=== PATIENT | female | born 1975 | race Caucasian/White ===

== ENCOUNTER 2016-10-31 20:55 | Emergency (ER) | payer MEDICAID ==
[~2016-10-31] VITALS: Ht 154.9 cm; Wt 82.5 kg
[2016-10-31 20:57] VITALS: Ht 154.9 cm; Wt 82.5 kg
[2016-10-31] MEDS ORDERED: KETOROLAC 60 MG INJ IM STA (21:18)
[2016-10-31] MEDS ORDERED: PROCHLORPERAZINE 10 MG INJ IM ONE (21:30)
[2016-10-31] MEDS ORDERED: IBUP-1542 PO (22:18)
[2016-10-31] MEDS ORDERED: PROC10TA10 PO (22:18)
[2016-10-31] MEDS ORDERED: ACET500C5 PO (22:18)
--- NOTE | 2016-10-31 22:36 | ERD ---
ER Documentation Chief Complaint Date/Time DATE: 10/31/16 TIME: 22:30 Chief Complaint 9/10 headache since this am with n/v no neuro deficits HPI 40-year-old female complaining of a headache since this morning. Patient stated the headache had a gradual onset. She has pain all over her head. She described it feels as if her head is "coming open". She has photophobia and phonophobia. She vomited 3 times today. Patient stated that she has frequent headaches, and this feels similar to her previous headaches but worse. She usually drinks 6-7 cups of water a day. Her LMP was 10/21/2016. Denies fever or chills. Denies blurry vision. Denies neck pain. ROS All systems reviewed and are negative except as per history of present illness. Medications Home Meds Active Scripts Prochlorperazine* (Prochlorperazine*) 10 Mg Tablet, 10 MG PO Q6H Y for NAUSEA, # 10 TAB Prov:OLGA LIDIA ISSA. 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 Allergies Allergies: Coded Allergies: No Known Allergy (Unverified , 10/31/16) PMhx/Soc Medical and Surgical Hx: pt denies Medical Hx History of Surgery: No Anesthesia Reaction: No Hx Neurological Disorder: No Hx Respiratory Disorders: No Hx Cardiac Disorders: No Hx Psychiatric Problems: No Hx Miscellaneous Medical Probl: No Hx Alcohol Use: No Hx Substance Use: No Hx Tobacco Use: No Smoking Status: Never smoker Physical Exam Vitals Vital Signs Date Time Temp Pulse Resp B/P Pulse Ox O2 Delivery O2 Flow Rate FiO2 10/31/16 20:57 98.8 80 20 130/68 100 Physical Exam General: Well-developed, well-nourished, conscious and coherent, in no distress Skin: Warm and dry without rash, good texture and turgor Head: Normocephalic without evidence of trauma Eyes: Sclera and conjunctivae normal; pupils equal, round, and reactive to light; extraocular movements are intact Neck: Supple without meningismus or adenopathy. Carotids are equal. Trachea midline. No bruits or JVD. Bilateral upper trapezius muscle tightness noted. Chest: Normal AP diameter. Good expansion without retractions. Nontender. Lungs are clear to auscultate bilaterally with good tidal volume Heart: Regular rate and rhythm. No murmur, rub, or gallops heard Extremities: Full range of motion. Good strength bilaterally. No clubbing, cyanosis, or edema. Peripheral pulses are intact. Sensation intact Neuro: Alert and oriented 4; GCS 15. Cranial nerves II - XII intact. Motor sensory exam nonfocal. Moves all extremities. Deep tendon reflexes 2+ in all extremities. Speech clear. No pronator drift. Gait steady. Results 24 hrs Current Medications Medications (Trade) Dose Ordered Sig/Derik Route PRN Reason Start Time Stop Time Status Last Admin Dose Admin Ketorolac Tromethamine (Toradol) 60 mg ONCE STAT IM 10/31/16 21:18 10/31/16 21:20 DC 10/31/16 21:37 Prochlorperazine (Compazine Inj) 10 mg ONCE ONCE IM 10/31/16 21:30 10/31/16 21:31 DC 10/31/16 21:37 Procedures/MDM Well-appearing 40-year-old female presented ED with headache 1 day. Differentials include but not limited to migraine, cluster headache, tension headache, sinus or dental infection, TMJ syndrome, pseudotumor cerebri, meningitis, encephalitis, giant cell arteritis, glaucoma, subarachnoid hemorrhage, subdural or epidural hematoma, intracranial bleeding or tumor. Likely her headache is either tension type, or migraine. Patient given Toradol and Compazine IM in the ED. Patient reports much improvement of headache after the medications. Patient appears well, stable for discharge and outpatient management. Medical decision making shared with patient and family. Education provided to patient and family. Patient and family expressed understanding of the plan. Medications on discharge: Ibuprofen, Compazine. Follow-up: Primary care provider in 2-3 days or return to ED if worse. Disclaimer: Inadvertent spelling and grammatical errors are likely due to EHR/ dictation software use and do not reflect on the overall quality of patient care. Also, please note that the electronic time recorded on this note does not necessarily reflect the actual time of the patient encounter. Departure Diagnosis: Primary Impression: Headache Headache type: unspecified Headache chronicity pattern: acute headache Intractability: not intractable Qualified Code: R51 - Acute nonintractable headache, unspecified headache type Condition: Stable Patient Instructions: Self-Care for Headaches Ref[facility] Usted se crisostomo hecho un examen mdico de control que le indica que no est en mamadou condicin que requiera tratamiento urgente en el Departamento de Emergencia. Un estudio ms profundo y el tratamiento de loja condicin pueden esperar sin ningn riesgo hasta que usted sea atendida/o en el consultorio de loja mdico o mamadou cl franko. Es responsabilidad suya arreglar mamadou rupali para el seguimiento del vitaly. MANEJO DE CONDICIONES NO URGENTES EN EL FUTURO 1) Si usted tiene un mdico de atencin primaria: Usted debera llamar a loja mdico de atencin primaria antes de venir al departamento de emergencia. Despus de las horas de consultorio, loja doctor o loja asociado/a est disponible por telfono. El mdico o enfermero de betsy en el servicio telefnico puede asesorarle por natasha medio para atender el problema, o vitaly contrario se puede programar mamadou rupali. 2) Si usted no tiene un mdico de atencin primaria: Llame al mdico o clnica de referencia que aparece abajo chasity las horas de consultorio para hacer mamadou rupali para que le vean. CLINICAS: [facility] [phone] [address] [facility] [phone] [address] [facility] [phone] [address] [facility] [phone] [facility] [phone] [address] [facility] [phone] [address] Additional Instructions: Llame al doctor MAANA y zaida mamadou RUPALI PARA DENTRO DE 2-3 JENKINS.Dgale a la secretaria que nosotros le instruimos hacer esta rupali.Avise o llame si loja condicin se empeora antes de la rupali. Regresa aqui si peor o no mejor. OLGA LIDIA ISSA. GLENNY Oct 31, 2016 22:36
== END 2016-10-31 22:36 | disposition home or self-care (01) ==
LOC: FTE 20:55
DX: R51 Headache (principal); R40.2412 Glasgow coma scale score 13-15, at arrival to emergency department
CPT/HCPCS: 96372; J1885; Z7502

== ENCOUNTER 2017-01-31 18:13 | Emergency (ER) | payer MEDICAID ==
[~2017-01-31] VITALS: Ht 162.6 cm; Wt 81.5 kg
[~2017-01-31 18:13] MED LIST: ACET500C5 PO; IBUP-1542 PO; PROC10TA10 PO
[2017-01-31 18:30] VITALS: Ht 162.6 cm; Wt 81.5 kg
--- NOTE | 2017-01-31 19:12 | ERD ---
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 Patient describes the pain as throbbing pain, 4/10 scale, as was upon touching the area, accompanied with swelling. Patient denies any deformity. Patient denies any numbness or tingling. ROS All systems reviewed and are negative except as per history of present illness. 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 Allergies Allergies: Coded Allergies: No Known Allergy (Unverified , 01/31/17) PMhx/Soc Medical and Surgical Hx: pt denies Medical Hx, pt denies Surgical Hx History of Surgery: No Anesthesia Reaction: No Hx Neurological Disorder: No Hx Respiratory Disorders: No Hx Cardiac Disorders: No Hx Psychiatric Problems: No Hx Miscellaneous Medical Probl: No Hx Alcohol Use: No Hx Substance Use: No Hx Tobacco Use: No Smoking Status: Never smoker FmHx Family History: No coronary disease, No diabetes, No other Physical Exam Vitals Vital Signs Date Time Temp Pulse Resp B/P Pulse Ox O2 Delivery O2 Flow Rate FiO2 01/31/17 18:30 99.0 73 18 141/65 100 Physical Exam GENERAL: The patient is well developed and appropriate for usual state of health, in no apparent distress. CHEST: Clear to auscultation bilaterally. There are no rales, wheezes or rhonchi. HEART: Regular rate and rhythm. No murmurs, clicks, rubs or gallops. No S3 or S4. ABDOMEN: Soft, nontender and nondistended. Good bowel sounds. No rebound or guarding. No gross peritonitis. No gross organomegaly or masses. No Shen sign or McBurney point tenderness. BACK: No midline or flank tenderness. EXTREMITIES: Tenderness on palpation on the patellar aspect of the left knee, no deformity noted, able to ambulate on it. Full range of motion without any restriction. Equal pulses bilaterally. Full range of motion of other joints of the body. Grossly neurovascularly intact. NEURO: Alert and oriented. Cranial nerves 2-12 intact. Motor strength in all 4 extremities with 5/5 strength. Sensation grossly intact. Normal speech and gait. SKIN: There is no apparent rash or petechia. The skin is warm and dry. HEMATOLOGIC AND LYMPHATIC: There is no evidence of excessive bruising or lymphedema. No gross cervical, axillary, or inguinal lymphadenopathy. Results 24 hrs Current Medications Medications (Trade) Dose Ordered Sig/Derik Route PRN Reason Start Time Stop Time Status Last Admin Dose Admin Acetaminophen/ Hydrocodone Bitart ([place] (5/325)) 1 tab ONCE ONCE PO 01/31/17 19:30 01/31/17 19:31 DC 01/31/17 19:19 Patient was given medication for pain here in emergency department, after treatment, patient verbalized feeling much better. Patient's pain is improved. PROCEDURE: XR Knee. CLINICAL INDICATION: Trauma TECHNIQUE: AP, lateral and oblique view of the left knee were obtained. COMPARISON: There are no similar studies submitted for comparison. FINDINGS: There is normal mineralization.There is no acute fracture or dislocation.No destructive lesion is identified. There is no joint effusion. IMPRESSION: No fracture or dislocation. RPTAT: HIKT .Rodolfo Harris MD, MD Date Time Electronically viewed and signed by .Rodolfo Harris MD, on 01/31/2017 21:27 .T/ CC: OCTAVIO BAUTISTA NP After receiving patients xray report, a knee immobilizer was applied on the patients right knee. After application of the splint, patient has intact sensation and circulation on distal area of the affected joint. Patient does not complain of numbness or tingling after application of the splint. Patient tolerated procedure well. Procedures/MDM Medical Decision Making: Patient's pain is most likely consistent with a knee contusion or sprain. There is no suspicion for neurovascular compromise. Patient has intact sensation and circulation of the affected extremity. There is low suspicion for septic arthritis. Patient does not have any fever. Radiology exams of the affected area does not show any fracture or dislocation. Disposition: Home. Patient is given prescription for ibuprofen for pain, [place] for severe pain. Patient was advised to elevate the affected area and apply ice on affected area. Patient was advised that if symptoms are worse, numbness, tingling, high fever, unable to move joint, worsening symptoms, to return to emergency department immediately. Otherwise, patient is advised to follow up with the primary care doctor in 5-7 days for reevaluation of symptoms. Disclaimer: Inadvertent spelling and grammatical errors are likely due to EHR/ dictation software use and do not reflect on the overall quality of patient care. Also, please note that the electronic time recorded on this note does not necessarily reflect the actual time of the patient encounter. Departure Diagnosis: Primary Impression: Knee pain Chronicity: acute Laterality: right Qualified Code: M25.561 - Acute pain of right knee Condition: Stable Patient Instructions: Knee Pain, Uncertain Cause Additional Instructions: Patient is given prescription for ibuprofen for pain, [place] for severe pain. Patient was advised to elevate the affected area and apply ice on affected area. Patient was advised that if symptoms are worse, numbness, tingling, high fever, unable to move joint, worsening symptoms, to return to emergency department immediately. Otherwise, patient is advised to follow up with the primary care doctor in 5-7 days for reevaluation of symptoms. OCTAVIO BAUTISTA NP Jan 31, 2017 19:12
[2017-01-31] MEDS ORDERED: HYDROCODONE/APAP (5/325) TAB PO ONE (19:30)
--- NOTE | 2017-01-31 21:27 | RADRPT ---
PROCEDURE: XR Knee. CLINICAL INDICATION: Trauma TECHNIQUE: AP, lateral and oblique view of the left knee were obtained. COMPARISON: There are no similar studies submitted for comparison. FINDINGS: There is normal mineralization.There is no acute fracture or dislocation.No destructive lesion is id entified. There is no joint effusion. IMPRESSION: No fracture or dislocation. RPTAT: HIKT .Rodolfo Harris MD, MD Date Time Electronically viewed and signed by .Rodolfo Harris MD, on 01/31/2017 21:27 .T/
[2017-01-31] MEDS ORDERED: HYDR-906 PO (21:37)
[2017-01-31] MEDS ORDERED: IBUP-1542 PO (21:37)
== END 2017-01-31 22:03 | disposition home or self-care (01) ==
LOC: FTE 18:13
DX: M25.562 Pain in left knee (principal)
CPT/HCPCS: 29505; 73564; Z7502; Z7610

== ENCOUNTER 2017-06-22 12:07 | Emergency (ER) | END 2017-06-22 14:49 | disposition home or self-care (01) ==